=== PATIENT | male | born 1970 | race Caucasian/White ===

== ENCOUNTER 2023-01-08 21:22 | Emergency (ER) | payer BC ==
[~2023-01-08] VITALS: Ht 167.6 cm; Wt 86.2 kg
[2023-01-08 21:26] VITALS: BP 156/90; PULSE 60; RESP 16; TEMP 97.4; O2SAT 98
[2023-01-08 22:38] VITALS: BP 145/71; PULSE 76; RESP 17; O2SAT 98
[2023-01-09] MEDS ORDERED: KETOROLAC 30 MG/ML VIAL IM ONE
[2023-01-09] MEDS ORDERED: NAPR-54 PO (00:03)
[2023-01-09] MEDS ORDERED: PRED20TA5 PO (00:03)
== END 2023-01-09 00:17 | disposition home or self-care (01) ==
LOC: MED 21:22
DX: M10.071 Idiopathic gout, right ankle and foot (principal); Z79.899 Other long term (current) drug therapy
CPT/HCPCS: 73660; 96372; 99283; J1885